=== PATIENT | male | born 1940 | race Asian ===

== ENCOUNTER 2019-06-25 08:11 | Day surgery (SDC) | payer OTHER | END 2019-06-25 10:00 | disposition home or self-care (01) | LOC: OR 08:11 | PROC: 3E0R33Z Introduction of Anti-inflammatory into Spinal Canal, Percutaneous Approach (ICD-10-PCS; principal; 2019-06-25) | PROC: B01BYZZ Fluoroscopy of Spinal Cord using Other Contrast (ICD-10-PCS; 2019-06-25) | DX: M51.16 Intervertebral disc disorders with radiculopathy, lumbar region (principal) | CPT/HCPCS: J1020 ==

== ENCOUNTER 2019-07-23 08:28 | Day surgery (SDC) | payer OTHER | END 2019-07-23 10:00 | disposition home or self-care (01) | LOC: OR 08:28 | PROC: 3E0R33Z Introduction of Anti-inflammatory into Spinal Canal, Percutaneous Approach (ICD-10-PCS; principal; 2019-07-23) | PROC: B01BYZZ Fluoroscopy of Spinal Cord using Other Contrast (ICD-10-PCS; 2019-07-23) | DX: M51.16 Intervertebral disc disorders with radiculopathy, lumbar region (principal) | CPT/HCPCS: J1020 ==